=== PATIENT | male | born 1985 | race Two or more races ===

== ENCOUNTER 2022-10-24 19:27 | Emergency (ER) | payer MEDICAID ==
[~2022-10-24] VITALS: Ht 165.1 cm; Wt 98.6 kg
[2022-10-24 20:29] VITALS: BP 122/79
[2022-10-24 22:04] LABS: Basophils # (auto) 0.1 10 ^3/uL (0-0.2); Basophils % (auto) 1.2 % (0.0-2.0); Eosinophils # (auto) 0.3 10 ^3/uL (0-0.8); Eosinophils % (auto) 3.1 % (0.0-7.0); Hematocrit 47.7 % (41.0-53.0); Hemoglobin 16.7 g/dL (13.5-17.5); Lymphocytes # (auto) 3.1 10 ^3/uL (0.4-5.4); Mean Corpuscular Hemoglobin 31.7 pg (28.0-32.0); Mean Corpuscular Hgb Conc. 35.1 g/dL (32.0-36.0); Mean Corpuscular Volume 90.4 fL (80.0-100.0); Monocytes # (auto) 0.8 10 ^3/uL (0-1.3); Monocytes % (auto) 8.6 % (0.0-12.0); Neutrophils # (auto) 4.8 10 ^3/uL (1.6-8.6); Neutrophils % (auto) 53.1 % (37.0-80.0); Nucleated Red Blood Cells % 0.3 %; Red Blood Cells 5.28 10^6/uL (4.5-5.90); Red Cell Distribution Width 12.5 % (11.8-14.3)
[2022-10-24 22:14] LABS: Albumin 3.9 g/dL (3.4-5.0); Calcium 9.2 mg/dL (8.5-10.1); Potassium 3.9 mmol/L (3.5-5.1)
[2022-10-24 22:17] LABS: BUN/Creatinine Ratio 17.7
[2022-10-24 22:20] LABS: Total Protein 7.5 g/dL (6.4-8.2)
== END 2022-10-24 23:23 | disposition home or self-care (01) ==
LOC: ER 19:27
DX: K29.70 Gastritis, unspecified, without bleeding (principal)
CPT/HCPCS: 36415; 71045; 74176; 80053; 83690; 84484; 85025

== ENCOUNTER 2023-07-27 02:54 | Emergency (ER) | payer MEDICAID ==
[~2023-07-27] VITALS: Ht 165.1 cm; Wt 95.4 kg
[2023-07-27 03:16] LABS: Basophils # (auto) 0.1 10 ^3/uL (0-0.2); Basophils % (auto) 1.3 % (0.0-2.0); Eosinophils # (auto) 0.3 10 ^3/uL (0-0.8); Eosinophils % (auto) 3.4 % (0.0-7.0); Lymphocytes # (auto) 3.4 10 ^3/uL (0.4-5.4); Lymphocytes % (auto) 38.4 % (10.0-50.0); Mean Corpuscular Hemoglobin 33.1 pg (28.0-32.0); Mean Corpuscular Hgb Conc. 36.2 g/dL (32.0-36.0); Mean Corpuscular Volume 91.5 fL (80.0-100.0); Monocytes # (auto) 0.9 10 ^3/uL (0-1.3); Monocytes % (auto) 9.9 % (0.0-12.0); Neutrophils # (auto) 4.2 10 ^3/uL (1.6-8.6); Nucleated Red Blood Cells % 0.4 %; Red Blood Cells 5.14 10^6/uL (4.5-5.90)
[2023-07-27 03:31] LABS: Albumin 4.7 g/dL (3.2-4.8); Alkaline Phosphatase 93 U/L (46-116); Anion Gap 14.2 (5-15); BUN/Creatinine Ratio 8.9 (10.0-20.0); Bilirubin, Total 0.7 mg/dL (0.2-1.0); Blood Urea Nitrogen 10 mg/dL (9-23); Calcium 9.6 mg/dL (8.7-10.4); Carbon Dioxide 19.8 mmol/L (20-30); Chloride 101 mmol/L (98-107); Glucose 97 mg/dL (74-106); Potassium 3.5 mmol/L (3.5-5.1); Sodium 135 mmol/L (136-145); Total Protein 7.4 g/dL (5.7-8.2)
[2023-07-27 03:41] LABS: Alanine Aminotransferase 58 U/L (7-40); Aspartate Aminotransferase 40 U/L (13-40)
[2023-07-27 04:10] LABS: Urine Bacteria NONE SEEN /hpf (None Seen); Urine Blood TRACE /uL (Negative); Urine Clarity Clear (Clear); Urine Color Colorless (Yellow); Urine Mucus FEW (None Seen); Urine Protein, UAD Negative (Negative); Urine Specific Gravity 1.014 (1.001-1.035); Urine Urobilinogen Normal (Negative); Urine WBC 1 /hpf (0 - 3); Urine pH 5.5 (5.0-8.0)
[2023-07-27 05:47] VITALS: BP 129/89; PULSE 81; RESP 18; TEMP 98.2; O2SAT 98
== END 2023-07-27 05:49 | disposition home or self-care (01) ==
LOC: ER 02:54
DX: R07.89 Other chest pain (principal); R00.2 Palpitations; E87.1 Hypo-osmolality and hyponatremia; E78.5 Hyperlipidemia, unspecified
CPT/HCPCS: 36415; 71045; 80053; 81001; 84484; 85025; 93005

== ENCOUNTER 2023-11-21 23:35 | Emergency (ER) | payer MEDICAID ==
[~2023-11-21] VITALS: Ht 165.1 cm; Wt 92.7 kg
[2023-11-21 23:37] VITALS: BP 110/82; RESP 16; O2SAT 98
[2023-11-21 23:39] VITALS: PULSE 92
[2023-11-22 00:02] LABS: Basophils # (auto) 0.1 10 ^3/uL (0-0.2); Basophils % (auto) 1.3 % (0.0-2.0); Eosinophils # (auto) 0.1 10 ^3/uL (0-0.8); Eosinophils % (auto) 1.5 % (0.0-7.0); Hematocrit 46.8 % (41.0-53.0); Hemoglobin 16.6 g/dL (13.5-17.5); Lymphocytes # (auto) 2.4 10 ^3/uL (0.4-5.4); Lymphocytes % (auto) 33.8 % (10.0-50.0); Mean Corpuscular Hemoglobin 32.5 pg (28.0-32.0); Mean Corpuscular Hgb Conc. 35.5 g/dL (32.0-36.0); Mean Corpuscular Volume 91.7 fL (80.0-100.0); Monocytes # (auto) 0.4 10 ^3/uL (0-1.3); Monocytes % (auto) 5.6 % (0.0-12.0); Neutrophils # (auto) 4.1 10 ^3/uL (1.6-8.6); Neutrophils % (auto) 57.8 % (37.0-80.0); Nucleated Red Blood Cells % 0.2 %; Red Blood Cells 5.11 10^6/uL (4.5-5.90); Red Cell Distribution Width 12.7 % (11.8-14.3); White Blood Cell 7.1 10^3/uL (4.4-10.8)
[2023-11-22 00:11] LABS: Urine Bacteria NONE SEEN /hpf (None Seen); Urine Blood Negative /uL (Negative); Urine Clarity Clear (Clear); Urine Protein, UAD Negative (Negative); Urine Urobilinogen Normal (Negative); Urine WBC <1 /hpf (0 - 3)
[2023-11-22 00:13] LABS: Urine Color Straw (Yellow)
[2023-11-22 00:16] LABS: Albumin 4.8 g/dL (3.2-4.8); Alkaline Phosphatase 87 U/L (46-116); Anion Gap 14 (5-15); BUN/Creatinine Ratio 13.2 (10.0-20.0); Bilirubin, Total 0.4 mg/dL (0.2-1.0); Blood Urea Nitrogen 12 mg/dL (9-23); Calcium 9.2 mg/dL (8.7-10.4); Carbon Dioxide 18 mmol/L (20-30); Chloride 107 mmol/L (98-107); Glucose 101 mg/dL (74-106); Magnesium 1.9 mg/dL (1.6-2.6); Potassium 3.8 mmol/L (3.5-5.1); Sodium 139 mmol/L (136-145)
[2023-11-22 00:17] LABS: INR 1.02 (0.9-1.15); Partial Thromboplastin Time 28.3 SEC (24.5-34.5); Prothrombin Time 10.7 sec (9.3-11.8); Total Protein 7.4 g/dL (5.7-8.2)
[2023-11-22 00:40] LABS: Alanine Aminotransferase 68 U/L (7-40); Aspartate Aminotransferase 37 U/L (13-40)
== END 2023-11-22 02:41 | disposition left against medical advice (07) ==
LOC: ER 23:35
DX: R07.89 Other chest pain (principal); R42 Dizziness and giddiness; Z53.21 Procedure and treatment not carried out due to patient leaving prior to being seen by health care provider; Z79.899 Other long term (current) drug therapy
CPT/HCPCS: 36415; 71045; 80053; 81001; 83735; 84484; 85025; 85610; 85730; 93005